=== PATIENT | female | born 1955 | race Caucasian/White ===

== ENCOUNTER 2016-06-22 19:00 | Emergency (ER) | payer BC ==
[~2016-06-22] VITALS: Ht 157.5 cm; Wt 81.6 kg
[~2016-06-22 19:00] MED LIST: CYMBALTA30 MG PO; CYMBALTA60 MG PO; ESTRACE42.5 GM VAG; INVOKANA100 MG PO; LAMICTAL200 MG PO; LAMICTAL25 MG PO; LANTUS100 UNIT/1 SUBCUT; LOVAZA1 GM PO; LUNESTA2 MG PO; NEURONTIN600 M1 PO; NEURONTIN600 MG PO; NOVOLOG100 UNIT/2 SUBCUT; ONGLYZA2.5 MG PO; PRILOSEC20 MG PO; SKELAXIN800 MG PO; SYNTHROID100 MCG PO; SYSTANE ULTRA 010 ML EYEBOTH; VGO 201 EACH SUBCUT; VGO 401 EACH SUBCUT; VISTARIL50 MG PO; ZEBETA5 MG PO; [UNRECOGNIZED DRUG - OTHER] SUBCUT
== END 2016-06-22 19:43 | disposition short-term general hospital (02) ==
LOC: ER 19:00
DX: G43.909 Migraine, unspecified, not intractable, without status migrainosus (principal); S00.11XD Contusion of right eyelid and periocular area, subsequent encounter; W19.XXXD Unspecified fall, subsequent encounter
CPT/HCPCS: J1200; J1885; J2550

== ENCOUNTER 2016-06-28 22:13 | Emergency (ER) | payer BC ==
[~2016-06-28] VITALS: Ht 157.5 cm; Wt 79.4 kg
== END 2016-06-28 23:57 | disposition short-term general hospital (02) ==
LOC: ER 22:13
DX: G43.909 Migraine, unspecified, not intractable, without status migrainosus (principal)
CPT/HCPCS: J1200; J1885; J2550

== ENCOUNTER 2016-07-19 21:58 | Emergency (ER) | payer BC ==
[~2016-07-19] VITALS: Ht 157.5 cm; Wt 79.4 kg
[2016-07-19] MEDS ORDERED: INVOKAMET 50-51 EACH PO (23:16)
[2016-07-19] MEDS ORDERED: VICTOZA 2-0.6 MG/0.1 INJECT (23:17)
== END 2016-07-20 00:10 | disposition short-term general hospital (02) ==
LOC: ER 21:58
DX: K08.89 Other specified disorders of teeth and supporting structures (principal); Z79.899 Other long term (current) drug therapy; Z88.2 Allergy status to sulfonamides
CPT/HCPCS: J1200; J1885; J2550

== ENCOUNTER 2016-07-29 21:43 | Emergency (ER) | payer BC ==
[~2016-07-29] VITALS: Ht 157.5 cm; Wt 79.8 kg
[~2016-07-29 21:43] MED LIST changes: +INVOKAMET 50-51 EACH PO; +VICTOZA 2-0.6 MG/0.1 INJECT
== END 2016-07-29 23:05 | disposition short-term general hospital (02) ==
LOC: ER 21:43
DX: G43.909 Migraine, unspecified, not intractable, without status migrainosus (principal)
CPT/HCPCS: J1200; J1885; J2405; J2550

== ENCOUNTER 2016-08-04 18:16 | Emergency (ER) | payer BC ==
[~2016-08-04] VITALS: Ht 157.5 cm; Wt 74.8 kg
== END 2016-08-04 20:55 | disposition short-term general hospital (02) ==
LOC: ER 18:16
DX: G43.909 Migraine, unspecified, not intractable, without status migrainosus (principal); J30.2 Other seasonal allergic rhinitis
CPT/HCPCS: J1200; J1885; J2550

== ENCOUNTER 2016-09-03 15:52 | Emergency (ER) | payer BC ==
[~2016-09-03] VITALS: Ht 157.5 cm; Wt 74.8 kg
== END 2016-09-03 17:15 | disposition short-term general hospital (02) ==
LOC: ER 15:52
DX: G43.909 Migraine, unspecified, not intractable, without status migrainosus (principal)
CPT/HCPCS: J1200; J1885; J2405; J2550

== ENCOUNTER 2016-09-04 15:24 | Emergency (ER) | payer BC ==
[~2016-09-04] VITALS: Ht 157.5 cm; Wt 72.6 kg
== END 2016-09-04 17:50 | disposition short-term general hospital (02) ==
LOC: ER 15:24
DX: R51 Headache (principal); F41.9 Anxiety disorder, unspecified; F32.9 Major depressive disorder, single episode, unspecified; E11.9 Type 2 diabetes mellitus without complications; K21.9 Gastro-esophageal reflux disease without esophagitis; E78.5 Hyperlipidemia, unspecified; E03.9 Hypothyroidism, unspecified; Z88.2 Allergy status to sulfonamides; Z88.8 Allergy status to other drugs, medicaments and biological substances; Z90.89 Acquired absence of other organs; Z86.73 Personal history of transient ischemic attack (TIA), and cerebral infarction without residual deficits; Z98.890 Other specified postprocedural states
CPT/HCPCS: J1200; J1885; J2405; J2550

== ENCOUNTER 2016-09-05 14:50 | Emergency (ER) | payer BC ==
[~2016-09-05] VITALS: Ht 157.5 cm; Wt 72.6 kg
== END 2016-09-05 16:58 | disposition short-term general hospital (02) ==
LOC: ER 14:50
DX: G43.909 Migraine, unspecified, not intractable, without status migrainosus (principal); J30.9 Allergic rhinitis, unspecified; Z88.1 Allergy status to other antibiotic agents; Z88.8 Allergy status to other drugs, medicaments and biological substances
CPT/HCPCS: J1200; J1885; J2405; J2550

== ENCOUNTER 2016-09-06 11:11 | Emergency (ER) | payer BC ==
[~2016-09-06] VITALS: Ht 157.5 cm; Wt 74.8 kg
== END 2016-09-06 12:48 | disposition short-term general hospital (02) ==
LOC: ER 11:11
DX: R51 Headache (principal); E11.9 Type 2 diabetes mellitus without complications; Z88.1 Allergy status to other antibiotic agents; Z88.8 Allergy status to other drugs, medicaments and biological substances
CPT/HCPCS: J1200; J1885; J2405; J2550

== ENCOUNTER 2016-09-12 12:07 | Emergency (ER) | payer BC ==
[~2016-09-12] VITALS: Ht 157.5 cm; Wt 77.1 kg
== END 2016-09-12 13:35 | disposition short-term general hospital (02) ==
LOC: ER 12:07
DX: R51 Headache (principal); E11.65 Type 2 diabetes mellitus with hyperglycemia; F41.9 Anxiety disorder, unspecified; F32.9 Major depressive disorder, single episode, unspecified; E78.5 Hyperlipidemia, unspecified; E03.9 Hypothyroidism, unspecified; Z86.73 Personal history of transient ischemic attack (TIA), and cerebral infarction without residual deficits; Z86.718 Personal history of other venous thrombosis and embolism; Z98.890 Other specified postprocedural states; Z90.89 Acquired absence of other organs; Z98.1 Arthrodesis status; Z88.8 Allergy status to other drugs, medicaments and biological substances; Z88.2 Allergy status to sulfonamides; Z79.899 Other long term (current) drug therapy; Z79.82 Long term (current) use of aspirin

== ENCOUNTER 2016-09-21 20:25 | Emergency (ER) | payer BC ==
[~2016-09-21] VITALS: Ht 157.5 cm; Wt 81.6 kg
== END 2016-09-21 23:02 | disposition short-term general hospital (02) ==
LOC: ER 20:25
DX: M54.5 Low back pain (principal)
CPT/HCPCS: J1200

== ENCOUNTER 2016-09-23 16:27 | Emergency (ER) | payer BC ==
[~2016-09-23] VITALS: Ht 157.5 cm; Wt 77.1 kg
== END 2016-09-23 18:10 | disposition short-term general hospital (02) ==
LOC: ER 16:27
DX: S39.012A Strain of muscle, fascia and tendon of lower back, initial encounter (principal); Z79.899 Other long term (current) drug therapy; X50.0XXA Overexertion from strenuous movement or load, initial encounter
CPT/HCPCS: J1200; J1885; J2550

== ENCOUNTER 2016-09-27 12:41 | Emergency (ER) | payer BC ==
[~2016-09-27] VITALS: Ht 157.5 cm; Wt 77.1 kg
== END 2016-09-27 14:20 | disposition short-term general hospital (02) ==
LOC: ER 12:41
DX: G43.909 Migraine, unspecified, not intractable, without status migrainosus (principal); F41.9 Anxiety disorder, unspecified; F32.9 Major depressive disorder, single episode, unspecified; E11.9 Type 2 diabetes mellitus without complications; Z86.73 Personal history of transient ischemic attack (TIA), and cerebral infarction without residual deficits; E78.5 Hyperlipidemia, unspecified; E03.9 Hypothyroidism, unspecified; Z88.2 Allergy status to sulfonamides
CPT/HCPCS: J1200; J1885; J2405; J2550

== ENCOUNTER 2016-10-04 16:15 | Emergency (ER) | payer BC ==
[~2016-10-04] VITALS: Ht 157.5 cm; Wt 74.8 kg
== END 2016-10-04 17:30 | disposition short-term general hospital (02) ==
LOC: ER 16:15
DX: G89.29 Other chronic pain (principal); M54.5 Low back pain
CPT/HCPCS: J1200; J1885; J2550

== ENCOUNTER 2016-10-06 16:13 | Emergency (ER) | payer BC ==
[~2016-10-06] VITALS: Ht 157.5 cm; Wt 72.6 kg
== END 2016-10-06 18:00 | disposition short-term general hospital (02) ==
LOC: ER 16:13
DX: G43.909 Migraine, unspecified, not intractable, without status migrainosus (principal); M79.7 Fibromyalgia
CPT/HCPCS: J1200; J1885; J2550

== ENCOUNTER 2016-10-08 20:29 | Emergency (ER) | payer BC ==
[~2016-10-08] VITALS: Ht 157.5 cm; Wt 72.6 kg
== END 2016-10-08 22:01 | disposition short-term general hospital (02) ==
LOC: ER 20:29
DX: G43.909 Migraine, unspecified, not intractable, without status migrainosus (principal); F41.9 Anxiety disorder, unspecified; F32.9 Major depressive disorder, single episode, unspecified; E11.9 Type 2 diabetes mellitus without complications; E78.5 Hyperlipidemia, unspecified; E03.9 Hypothyroidism, unspecified; Z79.82 Long term (current) use of aspirin; Z79.899 Other long term (current) drug therapy; Z88.8 Allergy status to other drugs, medicaments and biological substances; Z88.2 Allergy status to sulfonamides
CPT/HCPCS: J1200; J1885; J2550